=== PATIENT | female | born 2000 | race Caucasian/White ===

== ENCOUNTER 2023-12-31 22:50 | Emergency (ER) | payer OTHER, SELFPAY ==
[2023-12-31 22:57] VITALS: BP 134/84
[2023-12-31 23:11] LABS: % Basophils 0.5 % (0-2); % Eosinophils 2.5 % (0-6); % Immature Granulocytes 0.1 % (0-0.5); % Lymphocytes 37.2 % (20.5-51.1); % Neutrophils 50.7 % (42.2-75.2); Absolute Basophils 0.1 10^3/uL (0-0.2); Absolute Eosinophils 0.2 10^3/uL (0-0.7); Absolute Lymphocytes 3.4 10^3/uL (1.2-3.4); Absolute Monocytes 0.8 10^3/uL (0.1-0.6); Absolute Neutrophils 4.7 10^3/uL (1.4-6.5); Hematocrit 35.6 % (37.0-47.0); Hemoglobin 12.5 g/dL (12.0-16.0); Mean Corp Hgb Conc. 35.1 g/dL (33.0-37.0); Mean Corpuscular Volume 88.3 fL (81.0-99.0); Mean Platelet Volume 10.5 fL (7.4-10.4); Nucleated Red Blood Cells % 0 %; Platelet Count 331 10^3/uL (130-400); Red Blood Cell Count 4.03 10^6/uL (4.20-5.40); White Blood Cell Count 9.2 10^3/uL (4.8-10.8)
[2023-12-31 23:20] LABS: HCG, Serum Qualitative Screen Negative
[2023-12-31 23:25] LABS: ALT (SGPT) 23 U/L (0-35); AST (SGOT) 32 U/L (14-36); Albumin 4.6 g/dl (3.5-5.0); Alkaline Phosphatase 68 U/L (38-126); Blood Urea Nitrogen 15 mg/dl (7-17); Calcium 9.8 mg/dl (8.4-10.2); Carbon Dioxide 27 mmol/L (22-30); Chloride 104 mmol/L (98-107); Glucose 93 mg/dl (70-99); Potassium 4.2 mmol/L (3.5-5.1); Sodium 137 mmol/L (135-145); Total Bilirubin 0.3 mg/dl (0.2-1.3); Total Protein 7.3 g/dl (6.3-8.2); eGFR > 60.00
== END 2024-01-01 00:43 ==
LOC: EMR 22:50
PROVIDERS: Emergency Medicine
DX: R10.9 Unspecified abdominal pain (principal); R11.0 Nausea; Z53.21 Procedure and treatment not carried out due to patient leaving prior to being seen by health care provider
CPT/HCPCS: 99281; 80053; 84703; 85025

== ENCOUNTER → 2024-05-13 11:25 | Outpatient (REF) | payer OTHER, SELFPAY | LOC: RAD 11:25 | PROVIDERS: ATTENDING PHYSICIAN Internal Medicine; FAMILY PHYSICIAN Physician Assistant | DX: R19.8 Other specified symptoms and signs involving the digestive system and abdomen (principal); R10.33 Periumbilical pain | CPT/HCPCS: 74019 ==

== ENCOUNTER 2024-08-04 12:56 | Emergency (ER) | payer OTHER, SELFPAY ==
[2024-08-04] VITALS (7 sets, daily range): BP systolic 102–126; BP diastolic 49–77; BMI 24.2
[2024-08-04] MEDS: REGLAN 10 MG IV (13:45)
[2024-08-04] MEDS: TORADOL 15 MG IV (13:45)
[2024-08-04] MEDS: BENADRYL 12.5 MG IV (13:46)
[2024-08-04] MEDS: NSS 500 IV (13:47)
--- NOTE | 2024-08-04 13:51 | ED.GENMED ---
History of Present Illness
General
Chief Complaint: Visual Problem
Source: patient and family
Exam Limitations: none
Time Seen by Provider: 08/04/24 13:22
Nursing documentation reviewed up to this point in time: agreed with
History of Present Illness
History of Present Illness:
Patient with history of anxiety and bipolar disorder, as well as cluster headache, who has not been feeling well for the past 2 months, presents to ED secondary to sudden onset of severe headache associated with left-sided peripheral visual loss
while she was at work this morning. Since then, headache has increased in intensity and has caused patient to have multiple vomiting episodes. Denies fever or chills. Denies blurred vision. Denies loss of sensation or weakness. Patient states
that she has had intermittent 'cluster headache' recently as well. Patient has had imaging studies in the past, including MRI and CT head which have been normal. Denies recent illness. Denies coughing. Denies sore throat. Denies rash. Denies
recent travel. Denies sick contact.
Past History
Past History
ED Past Medical History: Psychiatric (bipolar, eating disorder) and Other (MCMULLEN, hypoglycemia, concussion)
Review of Systems
Review of Systems
Allergies reviewed?: Yes
All Other Systems: ROS reviewed and negative except as documented in HPI and ROS
Constitutional: Reports no symptoms; Denies fever
EENT: Reports no symptoms; Denies sore throat or runny nose
Respiratory: Reports no symptoms; Denies cough
Cardiac: Reports no symptoms
ABD/GI: Reports nausea and vomiting; Denies abdominal pain
: Reports no symptoms
Musculoskeletal: Reports no symptoms
Skin: Reports no symptoms
Neurological: Reports headache and other (peripheral visual loss)
Phy Exam
Physical Exam
Physical Exam:
Physical Exam
General: mild painful distress, uncomfortable appearing. afebrile
Head: nc/at. eomi
Neck: supple. normal range of motion.
Heart: s1/s2 regular rate and rhythm, no murmur. equal radial pulses.
Lungs: no acute respiratory distress. clear bilaterally
Abdomen: normal bowel sounds. not tender.
Neuro: alert and oriented x 3. no focal sensory/motor deficit. normal speech.
Skin: no rash
Psychiatric: well kept. interactive and cooperative
Extremities: no edema. no calf tenderness.
Course
Orders/Labs/Results
Orders:
Orders
08/04/24 13:05
Test Result ONCE
08/04/24 13:06
Electrocardiogram (*1) Urgent
Reason for Study: Chest Pain
EKG- Treatment ONCE
08/04/24 13:[address] [CT Head W/o Iv Contrast] Urgent
Comment:
Reason For Exam: headache, left peripheral vision loss
08/04/24 13:31
0.9% Sodium Chloride 500 ml [Nss] 500 ml IV BOLUS
Diphenhydramine [Benadryl] 12.5 mg IV NOW STA
Ketorolac [Toradol] 15 mg IV NOW STA
Metoclopramide [Reglan] 10 mg IV NOW STA
08/04/24 13:42
Complete Blood Count/With Diff Urgent
Comprehensive Metabolic Panel Urgent
HCG, Serum Qualitative Screen Urgent
Magnesium Urgent
08/04/24 14:02
Ondansetron Injectable [Zofran] 4 mg IV NOW STA
08/04/24 14:03
Ondansetron Injectable [Zofran] 4 mg .ROUTE .STK-MED ONE
08/04/24 15:02
Morphine Sulfate 2 mg IV NOW STA
Ondansetron Injectable [Zofran] 4 mg IV NOW STA
Abnormal Lab Results
08/04/24
13:42
MPV 10.5 H fL
(7.4-10.4)
Carbon Dioxide 20 L mmol/L
(22-30)
Glucose 111 H mg/dl
(70-99)
Albumin 5.1 H g/dl
(3.5-5.0)
08/04/24 13:42
08/04/24 13:42
Vital Signs
Initial and Last Documented VS:
Initial Vital Signs
Temp Pulse Resp BP Pulse Ox
97.8 F 107 20 126/77 100
08/04/24 12:59 08/04/24 12:59 08/04/24 12:59 08/04/24 12:59 08/04/24 12:59
Last Documented Vital Signs
Temp Pulse Resp BP Pulse Ox
98.8 F 95 20 102/53 98
08/04/24 15:35 08/04/24 18:15 08/04/24 18:15 08/04/24 18:00 08/04/24 18:15
MDM/Problems Addressed
MDM/Problems Addressed:
CT head: No acute findings.
Patient given treatment in ED, with near resolution of headache, along with presenting blurry vision and arm numbness. History and exam consistent with likely nonspecific neurological symptoms secondary to severe headache, likely migraine versus
cluster headache. Patient otherwise is afebrile, hemodynamically stable, and nontoxic-appearing, at time of discharge, to the care of her mother. Strongly recommended PCP or neurology follow-up as an outpatient.
*Critical Care Note
Total Time (30-74mins, 75-104mins- exclusive of procedures): Not Applicable
ED Attending Note
-
Portions of this chart may have been created with voice recognition software.� Occasional wrong word or��sound alike� substitutions may have occurred due to the inherent limitations of voice recognition software.
Discharge Plan
Departure
Patient Disposition: Home (Routine Discharge)
Date of Disposition: 08/04/24
Time of Disposition: 18:17
Patient with high blood pressure during this ER visit?: Yes
Condition: Good
Discharge Problem:
Headache
Instructions: Headache, Adult (DC)
Prescriptions:
No Action
lamotrigine [Lamictal] 200 MG tablet
200 mg PO HS
risperidone [Risperdal] 3 MG tablet
3 mg PO HS
bisacodyl 5 MG tablet,delayed release (DR/EC)
10 mg PO DAILYPRN PRN (Reason: constipation)
polyvinyl alcohol-povidon(PF) [Refresh Classic (PF)] 10 DROPS dropperette
1 drops BOTH EYES DAILYPRN PRN (Reason: dry eyes)
lisdexamfetamine [Vyvanse] 20 MG capsule
20 mg PO DAILYPRN PRN (Reason: school)
Referrals:
Josse Swain MD [Active] -
Isabela Gray PA [Family Provider] -
Activity Restrictions/Additional Instructions:
As discussed, please follow-up with your primary care physician and/or referred neurologist for further evaluation and treatment.
Interventions
Interventions:
*Risk Screen - Suicide Last Done: 08/04/24 12:59
*General Assessment Last Done: 08/04/24 12:59
*Neglect/Abuse Screening Last Done: 08/04/24 12:59
*Nursing Disposition Last Done: 08/04/24 18:36
ED- Neurological Assessment Last Done: 08/04/24 14:31
ED-EENT Assessment Last Done: 08/04/24 14:31
ED Swallowing Screen Last Done: 08/04/24 17:34
Discharge Date and Time
Discharge Date/Time: 08/04/24 18:38
Print Language: BELARUSIAN
[2024-08-04 13:57] LABS: % Basophils 0.6 % (0-2); % Eosinophils 1.7 % (0-6); % Immature Granulocytes 0.3 % (0-0.5); % Monocytes 6.9 % (1.7-9.3); % Neutrophils 59.5 % (42.2-75.2); Absolute Basophils 0.1 10^3/uL (0-0.2); Absolute Eosinophils 0.2 10^3/uL (0-0.7); Absolute Lymphocytes 2.9 10^3/uL (1.2-3.4); Absolute Monocytes 0.6 10^3/uL (0.1-0.6); Absolute Neutrophils 5.5 10^3/uL (1.4-6.5); Hematocrit 39.2 % (37.0-47.0); Hemoglobin 13.6 g/dL (12.0-16.0); Mean Corp Hgb Conc. 34.7 g/dL (33.0-37.0); Mean Corpuscular Hgb 30.7 pg (27.0-31.0); Mean Corpuscular Volume 88.5 fL (81.0-99.0); Mean Platelet Volume 10.5 fL (7.4-10.4); Nucleated Red Blood Cells % 0 %; Platelet Count 297 10^3/uL (130-400); Red Blood Cell Count 4.43 10^6/uL (4.20-5.40); Red Cell Dist. Width 11.5 % (11.5-14.5); White Blood Cell Count 9.3 10^3/uL (4.8-10.8)
[2024-08-04] MEDS: ZOFRAN 4 MG IV ×2 (14:05→15:37)
[2024-08-04 14:06] LABS: HCG, Serum Qualitative Screen Negative
[2024-08-04 14:08] LABS: ALT (SGPT) 19 U/L (0-35); AST (SGOT) 25 U/L (14-36); Albumin 5.1 g/dl (3.5-5.0); Alkaline Phosphatase 75 U/L (38-126); Blood Urea Nitrogen 13 mg/dl (7-17); Calcium 9.8 mg/dl (8.4-10.2); Carbon Dioxide 20 mmol/L (22-30); Chloride 104 mmol/L (98-107); Glucose 111 mg/dl (70-99); Magnesium 1.9 mg/dl (1.6-2.3); Potassium 3.6 mmol/L (3.5-5.1); Sodium 136 mmol/L (135-145); Total Bilirubin 0.5 mg/dl (0.2-1.3); Total Protein 7.7 g/dl (6.3-8.2); eGFR > 60.00
[2024-08-04] MEDS: MORPHINE SULFATE 2 MG IV (15:43)
== END 2024-08-04 18:38 | disposition home or self-care (01) ==
LOC: EMR 12:56
PROVIDERS: EMERGENCY PHYSICIAN Emergency Medicine; FAMILY PHYSICIAN Physician Assistant
DX: R51.9 Headache, unspecified (principal); R11.10 Vomiting, unspecified; H53.8 Other visual disturbances; R20.0 Anesthesia of skin
CPT/HCPCS: 96374; 96375; 96376; 96361; 99284; 70450; 80053; 83735; 84703; 85025; 93005

== ENCOUNTER → 2024-11-11 16:16 | Outpatient (REF) | payer OTHER, SELFPAY | LOC: RAD 16:16 | PROVIDERS: ATTENDING PHYSICIAN Physician Assistant | DX: R07.81 Pleurodynia (principal); V00.318A Other snowboard accident, initial encounter | CPT/HCPCS: 71101 ==

== ENCOUNTER 2024-11-18 08:52 | Emergency (ER) | payer OTHER, SELFPAY ==
[2024-11-18 08:53] VITALS: BP 130/81
[2024-11-18 09:25] VITALS: BMI 25.8
[2024-11-18 09:43] LABS: HCG, Serum Qualitative Screen Negative
[2024-11-18 09:49] LABS: D-Dimer 0.52 ug/mlFEU (0.00-0.50)
[2024-11-18 09:52] LABS: ALT (SGPT) 26 U/L (0-35); AST (SGOT) 30 U/L (14-36); Albumin 4.7 g/dl (3.5-5.0); Alkaline Phosphatase 65 U/L (38-126); Blood Urea Nitrogen 9 mg/dl (7-17); Calcium 9.1 mg/dl (8.4-10.2); Carbon Dioxide 23 mmol/L (22-30); Chloride 106 mmol/L (98-107); Estimated Creatinine Clearance 89 ml/min; Glucose 91 mg/dl (70-99); Potassium 4.3 mmol/L (3.5-5.1); Sodium 139 mmol/L (135-145); Total Bilirubin 0.6 mg/dl (0.2-1.3); Total Protein 7.1 g/dl (6.3-8.2); eGFR > 60.00
[2024-11-18 09:55] LABS: Hematocrit 39.2 % (37.0-47.0); Hemoglobin 13.1 g/dL (12.0-16.0); Mean Corp Hgb Conc. 33.4 g/dL (33.0-37.0); Mean Corpuscular Hgb 30.9 pg (27.0-31.0); Mean Corpuscular Volume 92.5 fL (81.0-99.0); Mean Platelet Volume 10.5 fL (7.4-10.4); Platelet Count 253 10^3/uL (130-400); Red Blood Cell Count 4.24 10^6/uL (4.20-5.40); Red Cell Dist. Width 13.1 % (11.5-14.5); White Blood Cell Count 5.2 10^3/uL (4.8-10.8)
--- NOTE | 2024-11-18 09:58 | ED.GENMED ---
History of Present Illness
General
Chief Complaint: Abdominal Pain
Time Seen by Provider: 11/18/24 09:06
History of Present Illness
History of Present Illness:
24-year-old female with history of ADHD and anxiety presents to the emergency department for evaluation of increasingly worsening pain to the right chest wall and scapular back. Pain has been ongoing for the past month, she states that
approximately 2 days before the onset of pain she was snowboarding in [place] and fell several times but denies any acute injuries to the right chest. Shortly after returning from her trip she developed gradual worsening right sided pain. States
it is worse with deep breathing or coughing/sneezing. Having a decreased appetite due to the pain. Also notes she has had URI symptoms for the past month as well but denies any fevers or productive cough. No leg swelling or calf cramping. Does
not take any exogenous hormones
Past History
Past History
ED Past Medical History: Psychiatric (bipolar, eating disorder) and Other (MCMULLEN, hypoglycemia, concussion)
Review of Systems
Review of Systems
Allergies reviewed?: Yes
All Other Systems: ROS reviewed and negative except as documented in HPI and ROS
Phy Exam
Physical Exam
Physical Exam:
GEN: Well appearing, NAD, WDWN
HEENT: Oral mucosa moist, no scleral icterus
Cardiac: Regular rate
Lung: No respiratory distress, no tachypnea, lungs clear to auscultation
Chest: No palpable abnormality, no gross tenderness palpated to the right chest wall or scapular back
Abdomen: Soft, grossly nontender
MSK: No gross deformity or injuries
Skin: Good color, no pallor or jaundice, no rashes
Neuro: AO x3, moves all extremities freely
Psych: Calm, cooperative
Course
Orders/Labs/Results
Orders:
Orders
11/18/24 08:57
EKG [Electrocardiogram (*1)] Urgent
Reason for Study: Abdominal Pain
11/18/24 08:58
EKG- Treatment ONCE
Test Result ONCE
11/18/24 09:24
Complete Blood Count/With Diff Urgent
Comprehensive Metabolic Panel Urgent
D-Dimer Urgent
HCG, Serum Qualitative Screen Urgent
Manual Differential Urgent
11/18/24 10:10
CT Chest PE Study Urgent
Comment:
Reason For Exam: R chest pain, elevated d dimer
Abnormal Lab Results
11/18/24
09:24
MPV 10.5 H fL
(7.4-10.4)
Monocytes (Manual) 12 H %
(2-9)
D-Dimer 0.52 H ug/mlFEU
(0.00-0.50)
11/18/24 09:24
11/18/24 09:24
Vital Signs
Initial and Last Documented VS:
Initial Vital Signs
Temp Pulse Resp BP Pulse Ox
99.5 F 98 18 130/81 100
11/18/24 08:53 11/18/24 08:53 11/18/24 08:53 11/18/24 08:53 11/18/24 08:53
Last Documented Vital Signs
Temp Pulse Resp BP Pulse Ox
99.5 F 75 18 120/68 100
11/18/24 08:53 11/18/24 11:31 11/18/24 08:53 11/18/24 11:31 11/18/24 11:31
MDM/Problems Addressed
MDM/Problems Addressed:
Due to the patient's recent travel and reports of pleuritic pain a D-dimer was obtained which came back marginally elevated. She was then sent for a CTA of the chest which shows no evidence of acute disease that would suggest the cause of her pain.
At this time it is unclear why she is having so much pain. Certainly could be a thoracic radiculopathy after injury while snowboarding. Will prescribe analgesics and recommend close primary care follow-up
*Critical Care Note
Total Time (30-74mins, 75-104mins- exclusive of procedures): Not Applicable
ED Attending Note
-
Portions of this chart may have been created with voice recognition software.� Occasional wrong word or��sound alike� substitutions may have occurred due to the inherent limitations of voice recognition software.
Discharge Plan
Departure
Patient Disposition: Home (Routine Discharge)
Date of Disposition: 11/18/24
Time of Disposition: 11:36
Patient with high blood pressure during this ER visit?: No
Discharge Problem:
Right-sided chest wall pain
Instructions: Chest Pain PCP Follow Up
Prescriptions:
New
oxycodone 5 mg tablet
5 mg PO Q8H PRN (Reason: Pain) Qty: 8 0RF
No Action
lamotrigine [Lamictal] 200 MG tablet
200 mg PO HS
risperidone [Risperdal] 3 MG tablet
3 mg PO HS
bisacodyl 5 MG tablet,delayed release (DR/EC)
10 mg PO DAILYPRN PRN (Reason: constipation)
polyvinyl alcohol-povidon(PF) [Refresh Classic (PF)] 10 DROPS dropperette
1 drops BOTH EYES DAILYPRN PRN (Reason: dry eyes)
lisdexamfetamine [Vyvanse] 20 MG capsule
20 mg PO DAILYPRN PRN (Reason: school)
Referrals:
Isabela Gray PA [Family Provider] -
Interventions
Interventions:
*Risk Screen - Suicide Last Done: 11/18/24 08:53
*General Assessment Last Done: 11/18/24 08:53
*ED COVID-19 Vaccine History Last Done: 11/18/24 08:53
*Nursing Disposition Last Done: 11/18/24 12:17
RM-Apnvvs-Llwbevmdmz Assessment Last Done: 11/18/24 09:26
Discharge Date and Time
Discharge Date/Time: 11/18/24 12:18
Print Language: CITIZEN OF [place]
[2024-11-18 11:00] LABS: Absolute Neutrophils -Man Diff 2.6 10^3/uL (1.4-6.5); Band Neutrophils 0 % (0-3); Eosinophils 4 % (0-6); Lymphocytes 33 % (20-51); Monocytes 12 % (2-9); Normal RBC Morphology Yes; Platelets Checked Yes; Segmented Neutrophils 51 % (42-75); Total Cells Counted 100
[2024-11-18 11:31] VITALS: BP 120/68
== END 2024-11-18 12:18 | disposition home or self-care (01) ==
LOC: EMR 08:52
PROVIDERS: Physician Assistant; EMERGENCY PHYSICIAN Emergency Medicine; FAMILY PHYSICIAN Physician Assistant
DX: R07.89 Other chest pain (principal); R79.1 Abnormal coagulation profile
CPT/HCPCS: 99284; 71275; 80053; 84703; 85025; 85379; 93005; Q9967

== ENCOUNTER → 2024-11-27 07:25 | Outpatient (REF) | payer OTHER, SELFPAY | LOC: HWRAD 07:25 | PROVIDERS: ATTENDING PHYSICIAN Physician Assistant | DX: R10.11 Right upper quadrant pain (principal) | CPT/HCPCS: 76700 ==

== ENCOUNTER → 2024-12-05 12:31 | Outpatient (REF) | payer OTHER, SELFPAY | LOC: PAVMRI 12:31 | PROVIDERS: ATTENDING PHYSICIAN Physician Assistant | DX: M54.14 Radiculopathy, thoracic region (principal) | CPT/HCPCS: 72146 ==

== ENCOUNTER 2025-03-12 13:22 | Emergency (ER) | payer OTHER, SELFPAY ==
[2025-03-12 13:24] VITALS: BP 138/79
[2025-03-12 13:52] LABS: Hematocrit 40.5 % (37.0-47.0); Hemoglobin 13.5 g/dL (12.0-16.0); Mean Corp Hgb Conc. 33.3 g/dL (33.0-37.0); Mean Corpuscular Volume 90.2 fL (81.0-99.0); Nucleated Red Blood Cells % 0 %; Platelet Count 261 10^3/uL (130-400); Red Cell Dist. Width 11.9 % (11.5-14.5)
[2025-03-12 14:21] LABS: ALT (SGPT) 18 U/L (0-35); AST (SGOT) 25 U/L (14-36); Albumin 4.8 g/dl (3.5-5.0); Alkaline Phosphatase 66 U/L (38-126); Blood Urea Nitrogen 11 mg/dl (7-17); Calcium 9.7 mg/dl (8.4-10.2); Carbon Dioxide 23 mmol/L (22-30); Chloride 108 mmol/L (98-107); Glucose 89 mg/dl (70-99); Potassium 4.7 mmol/L (3.5-5.1); Sodium 139 mmol/L (135-145); Total Protein 7.7 g/dl (6.3-8.2); eGFR > 60.00
[2025-03-12 15:10] LABS: Beta HCG Quantitative < 2.39 mIU/ml
[2025-03-12 15:15] VITALS: BMI 22.6
--- NOTE | 2025-03-12 15:18 | ED.GENMED ---
History of Present Illness
General
Chief Complaint: Problems
Source: patient
Time Seen by Provider: 03/12/25 14:54
History of Present Illness
History of Present Illness:
This patient is a 24-year-old female, , status post elective last year, who presents emergency department last menstrual period February 08, reportedly noted that her period was '5 days late', and took a home test which was
positive yesterday. She noted brown vaginal bleeding yesterday which progressed to bright red vaginal bleeding today associated abdominal cramping. She noted a clot earlier but none now. The bleeding has improved. She denies dizziness, chest
pain, dyspnea, back pain, or other complaints. Patient is Rh+
Past History
Past History
ED Past Medical History: Psychiatric (bipolar, eating disorder) and Other (MCMULLEN, hypoglycemia, concussion)
ED Past Surgical History: Tonsilectomy and Other (Myringotomy tubes)
Social History
Tobacco: Non-smoker
Alcohol: Occasional
Drug: None
Personal: Single
Phy Exam
Physical Exam
Physical Exam:
GENERAL: Alert , in no apparent distress
EYE: pupils equal and reactive
NECK: Supple, no significant adenopathy.
ENT: o/p clr, mmm.
CARDIAC: Regular rate and rhythm .
LUNGS: Clear breath sounds bilaterally, no acute respiratory distress, no wheezes/rales/rhonchi
ABDOMEN: Soft, without focal tenderness, no r/g, no cvat
NEUROLOGICAL: Alert and oriented, no focal neuro deficits
SKIN: Warm and dry, skin intact.
MUSCULOSKELETAL: No edema, well perfused.
PSYCH: Normal and appropriate interaction.
Course
Orders/Labs/Results
Orders:
Orders
03/12/25 13:36
Complete Blood Count/With Diff Urgent
Comprehensive Metabolic Panel Urgent
HCG, Beta Quantitative [Beta HCG Quantitative] Urgent
Is this a screen?: No
03/12/25 15:12
US Pelvis W Transvag Combined Urgent
Reason For Exam: bleeding, pos preg test
Abnormal Lab Results
03/12/25
13:36
MPV 10.8 H fL
(7.4-10.4)
Chloride 108 H mmol/L
(98-107)
03/12/25 13:36
03/12/25 13:36
Vital Signs
Initial and Last Documented VS:
Initial Vital Signs
Temp Pulse Resp BP Pulse Ox
98.1 F 79 16 138/79 98
03/12/25 13:24 03/12/25 13:24 03/12/25 13:24 03/12/25 13:24 03/12/25 13:24
Last Documented Vital Signs
Temp Pulse Resp BP Pulse Ox
98.1 F 63 16 108/67 100
03/12/25 13:24 03/12/25 17:57 03/12/25 17:57 03/12/25 17:57 03/12/25 17:57
*Pulse Oximetry
SaO2: 98
Oxygen Mode of Delivery: Room air
Update Note
Update Note:
Patient presents to the Emergency Department with ____positive test with vaginal bleeding
Number and Complexity of Problems Addressed at the Encounter
� Chronic conditions affecting care:
� Acute Exacerbation and/or Progression of Chronic Illness:
� Differential Diagnosis includes: But not limited to ectopic , normal , threatened AB, false positive test with normal menses, etc.
Amount and/or Complexity of Data to be Reviewed and Analyzed
� I performed an independent evaluation of and my interpretation is:
EKG:
CT:
Xrays:
Laboratory Studies: Rh+, beta hCG undetectable
Other: Ultrasound pelvic read by radiology no IUP, NAD
� Review of other/old records reveals:
� Clinical information was obtained by an independent historian: Boyfriend who is at bedside
� Prescriptions/Medications Considered but not given:
� Further testing considered but not performed:
Risk of Complications and/or Morbidity or Mortality of Patient Management
� Social determinants of health affecting care:
� Discussion with other providers (PCP, Hospitalists, Consultants, etc):
� Escalation of care including admission/observation vs risk of discharge considered: This is a unwanted and I did discuss with patient and her boyfriend options for control. Ironically she did discuss with her
[employer] K[employer]ITTER 2 weeks ago her options and she was considering a copper IUD. I encouraged her partner to wear a condom until control otherwise secured.
6:58 PM patient remains asymptomatic. She is having mild vaginal bleeding which may be consistent with her menstruation. She is not as per testing here. Discussed with her importance of follow-up and reasons return to the ER.
ED Attending Note
-
Portions of this chart may have been created with voice recognition software.� Occasional wrong word or��sound alike� substitutions may have occurred due to the inherent limitations of voice recognition software.
Discharge Plan
Departure
Patient Disposition: Home (Routine Discharge)
Date of Disposition: 03/12/25
Time of Disposition: 18:58
Patient with high blood pressure during this ER visit?: Yes
Condition: Good
Discharge Problem:
Vaginal bleeding
Instructions: Heavy periods, BLOOD PRESSURE
Prescriptions:
No Action
lamotrigine [Lamictal] 200 MG tablet
200 mg PO HS
risperidone [Risperdal] 3 MG tablet
3 mg PO HS
bisacodyl 5 MG tablet,delayed release (DR/EC)
10 mg PO DAILYPRN PRN (Reason: constipation)
polyvinyl alcohol-povidon(PF) [Refresh Classic (PF)] 10 DROPS dropperette
1 drops BOTH EYES DAILYPRN PRN (Reason: dry eyes)
lisdexamfetamine [Vyvanse] 20 MG capsule
20 mg PO DAILYPRN PRN (Reason: school)
oxycodone 5 mg tablet
5 mg PO Q8H PRN (Reason: Pain) Qty: 8 0RF
Referrals:
Isabela Gray PA [Family Provider, Family Practice]
Activity Restrictions/Additional Instructions:
PLEASE FOLLOW-UP WITH YOUR [employer] K[employer] DOCTOR WITHIN THE NEXT WEEK. IF YOU DEVELOP INCREASING BLEEDING, DIZZINESS, FEVER, VOMITING, OR OTHER WORRISOME SIGNS, PLEASE RETURN TO THE ER IMMEDIATELY!
Interventions
Interventions:
*Risk Screen - Suicide Last Done: 03/12/25 13:24
*General Assessment Last Done: 03/12/25 15:15
*Neglect/Abuse Screening Last Done: 03/12/25 13:24
*ED- Fall Risk Assessment Last Done: 03/12/25 15:15
*ED COVID-19 Vaccine History Last Done: 03/12/25 15:15
ED-Female Genitourinary Assessment Last Done: 03/12/25 15:15
Discharge Date and Time
Print Language: KHMER
[2025-03-12 17:57] VITALS: BP 108/67
[2025-03-12 19:18] VITALS: BP 115/75
== END 2025-03-12 19:22 | disposition home or self-care (01) ==
LOC: EMR 13:22
PROVIDERS: Emergency Medicine; EMERGENCY PHYSICIAN Emergency Medicine; FAMILY PHYSICIAN Physician Assistant
DX: N93.9 Abnormal uterine and vaginal bleeding, unspecified (principal)
CPT/HCPCS: 99284; 76830; 76856; 80053; 84702; 85025